=== PATIENT | male | born 1975 | race Caucasian/White ===

== ENCOUNTER 2016-11-28 17:08 | Emergency (ER) | payer OTHER ==
[~2016-11-28] VITALS: Ht 162.6 cm; Wt 86.3 kg
[~2016-11-28 17:08] MED LIST: ALBU6.7H INH; DOXY100T PO; PROT40TA PO; ZOFR4TAB PO
[2016-11-28 17:10] VITALS: BP 131/84; PULSE 81; RESP 16; TEMP 98.6; O2SAT 95
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
[2016-11-28] MEDS ORDERED: ZITH500T PO (18:48)
[2016-11-28 21:32] LABS: CHLAMYDIA PCR NOT DETECTED (NOT DETECT); NEISSERIA PCR NOT DETECTED (NOT DETECT)
== END 2016-11-28 18:58 | disposition home or self-care (01) ==
LOC: PHEFT 17:09
DX: Z20.2 Contact with and (suspected) exposure to infections with a predominantly sexual mode of transmission (principal); M54.9 Dorsalgia, unspecified; G89.29 Other chronic pain; Z72.0 Tobacco use; Z86.69 Personal history of other diseases of the nervous system and sense organs
CPT/HCPCS: 87491; 87591; 99283

== ENCOUNTER 2017-01-24 17:52 | Emergency (ER) | payer OTHER ==
[~2017-01-24 17:52] MED LIST changes: -ALBU6.7H INH; -DOXY100T PO; -PROT40TA PO; +ZITH500T PO; -ZOFR4TAB PO
[2017-01-24 17:59] VITALS: BP 148/77; PULSE 81; RESP 14; TEMP 98.6; O2SAT 97
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
[2017-01-24 18:30] LABS: CHLORIDE 104 MEQ/L (98-107); POTASSIUM 3.6 MEQ/L (3.5-5.1); SODIUM (NA) 140 MEQ/L (136-145)
[2017-01-24 18:34] LABS: ANION GAP 7 MEQ/L (5-15); BICARBONATE 29.2 MEQ/L (21.0-32.0)
[2017-01-24 18:35] LABS: BLOOD UREA NITROGEN 19 MG/DL (7-18)
[2017-01-24 18:37] LABS: ALT (GPT) 16 U/L (12-78); AST (GOT) 20 U/L (15-37); GLOMERULAR FILTRATION RATE 82 ML/MIN (>89)
[2017-01-24 18:38] LABS: AUTOMATED NEUTROPHIL # 10.2 TH/MM3 (1.8-7.7); BASOPHIL # 0.2 TH/MM3 (0-0.2); BASOPHIL % 1.7 % (0.0-2.0); EOSINOPHIL # 0.1 TH/MM3 (0-0.4); EOSINOPHIL % 0.5 % (0.0-4.0); HEMATOCRIT 39.2 % (39.0-51.0); LYMPH % 16.7 % (9.0-44.0); LYMPHOCYTE # 2.3 TH/MM3 (1.0-4.8); MEAN CORPUSCULAR HEMOGLOBIN 33.1 PG (27.0-34.0); MEAN CORPUSCULAR HGB CONC 33.5 % (32.0-36.0); MONO % 5.8 % (0.0-8.0); NEUT % 75.3 % (16.0-70.0); PLATELET COUNT 182 TH/MM3 (150-450); RED BLOOD COUNT 3.96 MIL/MM3 (4.50-5.90); RED CELL DISTRIBUTION WIDTH 13.8 % (11.6-17.2); WHITE BLOOD COUNT 13.6 TH/MM3 (4.0-11.0)
[2017-01-24 18:39] LABS: HEMO FLAGS DIFF FINAL; TOTAL BILIRUBIN ADULT 0.8 MG/DL (0.2-1.0)
[2017-01-24 18:40] LABS: ALKALINE PHOSPHATASE 33 U/L (45-117)
[2017-01-24 19:00] VITALS: BP 139/78; PULSE 68; RESP 16; O2SAT 99
[2017-01-24] MEDS ORDERED: IOHEXOL 350 MG/ML 10 ML VIAL (for RAD DIAG) IV ONE (19:00)
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
--- NOTE | 2017-01-24 19:08 | RADHPO ---
EXAM DATE/TIME: 01/24/2017 18:45 [facility] COMPARISON: CT ABDOMEN & PELVIS W CONTRAST, July 18, 2013, 2:17. INDICATIONS : Mid abdominal pain x 2 days. IV CONTRAST: 85 cc Omnipaque 350 (iohexol) IV ORAL CONTRAST: No oral contrast ingested. RADIATION DOSE: 10.57 CTDIvol (mGy) MEDICAL HISTORY : Seizures. SURGICAL HISTORY : None. ENCOUNTER: Initial ACUITY: 2 days PAIN SCALE: 8/10 LOCATION: Mid abdomen TECHNIQUE: Volumetric scanning of the abdomen and pelvis was performed. Using automated exposure control and ad justment of the mA and/or kV according to patient size, radiation dose was kept as low as reasonably achievable to obtain optimal diagnostic quality images. FINDINGS: LOWER LUNGS: Mild patchy air space opacities are seen of the visualized lung bases. LIVER: Homogeneous density without lesion. There is no dilation of the biliary tree. No calcified gallston es. SPLEEN: Normal size without lesion. PANCREAS: Within normal limits. KIDNEYS: There is mild hydronephrosis of the left kidney, mainly the upper pole. An 8mm mid zone stone is seen , presumably causing the hydronephrosis. There is a 3 mm stone of the left upper pole that does not a ppear to be obstructing. There is no hydroureter on either side or hydronephrosis on the right. ADRENAL GLANDS: Within normal limits. VASCULAR: There is no aortic aneurysm. BOWEL/MESENTERY: The stomach, small bowel, and colon demonstrate no acute abnormality. There is no free intraperitone al air or fluid. Normal appendix. ABDOMINAL WALL: Within normal limits. RETROPERITONEUM: There is no lymphadenopathy. BLADDER: 15 mm right posterolateral bladder diverticulum, unchanged. REPRODUCTIVE: Within normal limits. INGUINAL: There is no lymphadenopathy or hernia. MUSCULOSKELETAL: No acute bony abnormality demonstrated. CONCLUSION: 1. 8mm stone of the mid zone of the left kidney and appears to be causing mild obstruction of the upp er pole. There is a 3 mm nonobstructing left upper pole stone. 2. No obstruction or acute inflammatory changes are seen of the gastrointestinal tract. 3. Small bladder diverticulum, retrospectively unchanged. 4. Patchy consolidation of both lung bases. Cory Jacobs MD on January 24, 2017 at 19:03 Board Certified Radiologist. This report was verified electronically.
[2017-01-24 19:21] LABS: BLOOD, URINE NEG (NEG); GLUCOSE,URINE NEG (NEG); KETONE, URINE TRACE mg/dL (NEG); NITRITE,URINE NEG (NEG)
[2017-01-24 19:32] LABS: MUCUS URINE MOD /lpf (OCC); URINE COLOR YELLOW (YELLW/STRAW)
[2017-01-24 19:33] LABS: BACTERIA, URINE RARE /hpf; COMMENT (UR) CULTURE INDICATED; CULTURE IF INDICATED CULTURE INDICATED; RBC, URINE 0-3 /hpf (0-3); SQUAMOUS EPITHELIAL CELL URINE 0-5 /hpf (0-5); WBC, URINE 15-19 /hpf (0-5)
[2017-01-24 19:36] LABS: BARBITURATES, URINE NEG (NEG)
[2017-01-24 19:37] LABS: AMPHETAMINE, URINE NEG (NEG); COCAINE, URINE NEG (NEG)
[2017-01-24] MEDS ORDERED: cefTRIAXone INJ 1,000 MG in SODIUM CHLORIDE 0.9% INJ 100 ML IV ONE (19:45)
[2017-01-24] MEDS ORDERED: CEPH-460 PO (19:59)
[2017-01-24 20:07] VITALS: BP 135/66; PULSE 66; RESP 16; O2SAT 93
== END 2017-01-24 20:54 | disposition home or self-care (01) ==
LOC: PHED 17:52
DX: N39.0 Urinary tract infection, site not specified (principal); N20.0 Calculus of kidney; R56.9 Unspecified convulsions; F17.210 Nicotine dependence, cigarettes, uncomplicated; R51 Headache; Y04.2XXA Assault by strike against or bumped into by another person, initial encounter; V19.9XXA Pedal cyclist (driver) (passenger) injured in unspecified traffic accident, initial encounter; Y93.9 Activity, unspecified; Y92.410 Unspecified street and highway as the place of occurrence of the external cause; Y99.8 Other external cause status
CPT/HCPCS: 70450; 74177; 80053; 80307; 81001; 83690; 85025; 87086; 96365; 99284; J0696; Q9967

== ENCOUNTER 2017-02-11 23:07 | Emergency (ER) | payer OTHER ==
[~2017-02-11 23:07] MED LIST changes: +CEPH-460 PO; -ZITH500T PO
[2017-02-11 23:39] VITALS: BP 139/71; PULSE 80; RESP 18; TEMP 98.6; O2SAT 99
[2017-02-11] MEDS ORDERED: FOSPHENYTOIN INJ 1,000 MGPE in SODIUM CHLORIDE 0.9% INJ 50 ML IV ONE (23:45)
[2017-02-11 23:48] LABS: AUTOMATED NEUTROPHIL # 9.2 TH/MM3 (1.8-7.7); BASOPHIL # 0.1 TH/MM3 (0-0.2); BASOPHIL % 0.8 % (0.0-2.0); EOSINOPHIL # 0.2 TH/MM3 (0-0.4); EOSINOPHIL % 1.2 % (0.0-4.0); HEMATOCRIT 41.3 % (39.0-51.0); HEMO FLAGS DIFF FINAL; LYMPH % 25.5 % (9.0-44.0); LYMPHOCYTE # 3.6 TH/MM3 (1.0-4.8); MEAN CELL VOLUME 98.6 FL (80.0-100.0); MEAN CORPUSCULAR HEMOGLOBIN 33.2 PG (27.0-34.0); MEAN CORPUSCULAR HGB CONC 33.7 % (32.0-36.0); MONO % 7.4 % (0.0-8.0); NEUT % 65.1 % (16.0-70.0); PLATELET COUNT 200 TH/MM3 (150-450); RED BLOOD COUNT 4.19 MIL/MM3 (4.50-5.90); WHITE BLOOD COUNT 14.3 TH/MM3 (4.0-11.0)
--- NOTE | 2017-02-11 23:49 | PD ---
HPI Chief Complaint: Laceration/Skin Injury Time Seen by Provider: 23:17 Travel History International Travel<30 days: No Contact w/Intl Traveler<30days: No Traveled to known affect area: No History of Present Illness HPI 41yo M with PMH of seizure disorder presents to the ED with possible episode of seizure today. Pt states he let his dogs out in the yard and the next thing he remembered was face down on the cement. Pt with small laceration on right eyebrow and was a bit confused after. Pt now complains of right sided headache where the laceration is and right facial pain along with some neck pain. Pt denies any urinary incontinence. Denies any fever, chest pain, sob, n/v, abdominal pain, focal weakness or numbness. Pt states he was on depakote for 2 years and was taken off it for 3 years by his neurologist because he was having reaction to it. States he has not been on any seizure medications for 3 years. Tetanus up to date. PFSH Past Medical History Seizures: Yes Social History Alcohol Use: Yes (SOCIALLY, BEER (DENIES)) Tobacco Use: Yes (1 PACK EVERY 3 DAYS) Substance Use: No (DENIES) Allergies-Medications (Allergen,Severity, Reaction): Coded Allergies: Latex (Verified Allergy, Intermediate, RASH, 02/11/17) Penicillin (Verified Allergy, Intermediate, RASH, 02/11/17) Reported Meds & Prescriptions Reported Meds & Active Scripts Active Keflex (Cephalexin) 500 Mg Cap 500 Mg PO Q6H 10 Days Review of Systems Except as stated in HPI: all other systems reviewed are Neg Physical Exam Narrative GENERAL: 41yo M not in distress. SKIN: Focused skin assessment warm/dry. HEAD: +3cm laceration in right eyebrow. There is also a 0.5 cm superficial laceration underneath it. EYES: Pupils equal and round at 4mm bilaterally. EOMI. No scleral icterus. No injection or drainage. ENT: No nasal bleeding or discharge. Mucous membranes pink and moist. NECK: +C3-4 ttp. Pt placed in cervical spine collar. CARDIOVASCULAR: Regular rate and rhythm. No murmur appreciated. RESPIRATORY: No accessory muscle use. Clear to auscultation. Breath sounds equal bilaterally. GASTROINTESTINAL: Abdomen soft, non-tender, nondistended. MUSCULOSKELETAL: No obvious deformities. No clubbing. No cyanosis. No edema. NEUROLOGICAL: Awake and alert. No obvious cranial nerve deficits. Motor grossly within normal limits. Normal speech. AAOx3. GCS 15. PSYCHIATRIC: Appropriate mood and affect; insight and judgment normal. Data Data Last Documented VS Vital Signs Date Time Temp Pulse Resp B/P Pulse Ox O2 Delivery O2 Flow Rate FiO2 02/12/17 01:00 69 16 126/81 99 Room Air 02/11/17 23:39 98.6 Orders Apply Cervical Collar (02/11/17 23:33) Ct Brain W/O Iv Contrast(Rout) (02/11/17 ) Ct Cerv Spine W/O Contrast (02/11/17 ) Ct Facial Bones W/O Iv Cont (02/11/17 ) Complete Blood Count With Diff (02/11/17 23:35) Basic Metabolic Panel (Bmp) (02/11/17 23:35) Prothrombin Time / Inr (Pt) (02/11/17 23:35) Act Partial Throm Time (Ptt) (02/11/17 23:35) Fosphenytoin Inj (Cerebyx Inj) (02/11/17 23:45) Electrocardiogram (02/11/17 ) Magnesium (Mg) (02/11/17 23:40) Potassium Chloride (Kcl) (02/12/17 00:30) Lidocaine 1% Inj (50 Ml) (Xylocaine 1% I (02/12/17 00:45) Labs Laboratory Tests Test 02/11/17 23:40 White Blood Count 14.3 TH/MM3 Red Blood Count 4.19 MIL/MM3 Hemoglobin 13.9 GM/DL Hematocrit 41.3 % Mean Corpuscular Volume 98.6 FL Mean Corpuscular Hemoglobin 33.2 PG Mean Corpuscular Hemoglobin 33.7 % Concent Red Cell Distribution Width 14.0 % Platelet Count 200 TH/MM3 Mean Platelet Volume 9.1 FL Neutrophils (%) (Auto) 65.1 % Lymphocytes (%) (Auto) 25.5 % Monocytes (%) (Auto) 7.4 % Eosinophils (%) (Auto) 1.2 % Basophils (%) (Auto) 0.8 % Neutrophils # (Auto) 9.2 TH/MM3 Lymphocytes # (Auto) 3.6 TH/MM3 Monocytes # (Auto) 1.1 TH/MM3 Eosinophils # (Auto) 0.2 TH/MM3 Basophils # (Auto) 0.1 TH/MM3 CBC Comment DIFF FINAL Differential Comment Prothrombin Time 10.6 SEC Prothromb Time International 1.0 RATIO Ratio Activated Partial 27.7 SEC Thromboplast Time Sodium Level 141 MEQ/L Potassium Level 3.2 MEQ/L Chloride Level 104 MEQ/L Carbon Dioxide Level 27.8 MEQ/L Anion Gap 9 MEQ/L Blood Urea Nitrogen 11 MG/DL Creatinine 0.92 MG/DL Estimat Glomerular Filtration 90 ML/MIN Rate Random Glucose 149 MG/DL Calcium Level 9.2 MG/DL Magnesium Level 2.1 MG/DL [facility] Medical Decision Making Medical Screen Exam Complete: Yes Emergency Medical Condition: Yes Interpretation(s) EKG: NSR 71bpm. QTc 391ms. No ST segment elevation or depression. TWI III. Differential Diagnosis Seizure vs. electrolyte abnormality vs. fracture Narrative Course 41yo M with right eyebrow laceration s/p what sounded like a seizure. Pt given 1 gm of fosphenytoin. Labs reviewed, leukocytosis at 14.3, like reactive from seizure. K: 3.2, replaced with 40mEq KCl. CT cervical spine unremarkable. Cervical spine collar clear by NEXUS criteria. Pain is more left sided. CT brain negative. CT maxillofacial negative. Pt given acetaminophen for pain. Tetanus up to date. Laceration repaired. Return precautions given. Pt states his neurologist does not take his insurance anymore, will refer to classification inspector neurologist. Diagnosis Primary Impression: Head trauma Qualified Code: S09.90XA - Head trauma, initial encounter Referrals: Robby Jean-Baptiste MD 1 day seizure, need new neurologist Patient Instructions: General Instructions Departure Forms: Tests/Procedures Additional Instructions: Please follow up with neurology in 1-2 days. Return to the ED if symptoms worsen. Med/Other Pt SpecificInfo: Prescription(s) given Scripts Acetaminophen (Acetaminophen Extra Strength)500 Mg [id number] Mg PO Q6H PRN (PAIN SCALE 1 TO 4) #20 TAB Ref 0 Prov:BrownLinda DO 02/12/17 Disposition: 01 DISCHARGE HOME Condition: Stable Linda Brown DO February 11, 2017 23:49
[2017-02-11 23:54] LABS: POTASSIUM 3.2 MEQ/L (3.5-5.1)
[2017-02-11 23:58] LABS: BICARBONATE 27.8 MEQ/L (21.0-32.0); MAGNESIUM 2.1 MG/DL (1.5-2.5)
[2017-02-12] LABS: APTT (PATIENT) 27.7 SEC (24.3-30.1); PROTHROMBIN TIME - PATIENT 10.6 SEC (9.8-11.6)
[2017-02-12] MEDS ORDERED: POTASSIUM CHLORIDE 20 MEQ CONTROLLED RELEASE TAB PO ONE (00:30)
[2017-02-12] MEDS ORDERED: LIDOCAINE HCL 1% 50 ML VIAL INFIL ONE (00:45)
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
[2017-02-12 01:00] VITALS: BP 126/81; PULSE 69; RESP 16; O2SAT 99
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
[2017-02-12] MEDS ORDERED: ACET500T36 PO (02:00)
[2017-02-12] MEDS ORDERED: ACETAMINOPHEN 325 MG TAB PO ONE (02:15)
--- NOTE | 2017-02-12 19:33 | EKG ---
Date Performed: 02/11/2017 Time Performed: 23:49:14 PTAGE: 41 years EKG: Sinus rhythm . rSr'(V1) - probable normal variant Normal ECG PREVIOUS TRACING : 10/11/2011 16.18 Compared to prior tracing no significant change DOCTOR: Paulo Brooks Interpretating Date/Time 02/12/2017 19:31:36
== END 2017-02-12 02:25 | disposition home or self-care (01) ==
LOC: PHED 23:07
DX: S09.90XA Unspecified injury of head, initial encounter (principal); S01.111A Laceration without foreign body of right eyelid and periocular area, initial encounter; G40.909 Epilepsy, unspecified, not intractable, without status epilepticus; D72.829 Elevated white blood cell count, unspecified; F17.200 Nicotine dependence, unspecified, uncomplicated; W18.30XA Fall on same level, unspecified, initial encounter; Z79.899 Other long term (current) drug therapy
CPT/HCPCS: 70450; 70486; 72125; 80048; 83735; 85025; 85610; 85730; 93005; 99285; Q2009

== ENCOUNTER 2017-02-14 20:54 | Emergency (ER) | payer OTHER ==
[~2017-02-14] VITALS: Ht 162.6 cm; Wt 84.7 kg
[~2017-02-14 20:54] MED LIST changes: +ACET500T36 PO; -CEPH-460 PO
[2017-02-14 20:59] VITALS: BP 119/83; PULSE 78; RESP 16; TEMP 98.8; O2SAT 96
[2017-02-14] MEDS ORDERED: DILA100C PO (21:28)
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
--- NOTE | 2017-02-14 22:38 | PD ---
Physical Exam Time Seen by Provider: 22:36 Narrative Has asked by Dr. Harrison to repair laceration of this patient. Please see his note for further details. Data Data Last Documented VS Vital Signs Date Time Temp Pulse Resp B/P Pulse Ox O2 Delivery O2 Flow Rate FiO2 02/14/17 22:11 20 02/14/17 20:59 98.8 78 119/83 96 Orders Phenytoin (Dilantin) (02/14/17 21:30) Alcohol (Ethanol) (02/14/17 21:30) Labs Laboratory Tests Test 02/14/17 21:50 Phenytoin (Dilantin) Level 5.8 MCG/ML Ethyl Alcohol Level LESS THAN 3 MG/DL MDM Medical Record Reviewed: Yes Supervised Visit with YUE: Yes Procedures Procedure Narrative LACERATION LOCATION: Left eyebrow LENGTH: 1 cm REPAIR: The area of the laceration was prepped with soap and water. The wound was copiously irrigated and explored without evidence of foreign body, tendon injury or neurovascular injury. The wound was closed using Dermabond. This was a single layer repair. A sterile dressing was applied. The patient was advised to keep the dressing clean and dry. Susie Smith February 14, 2017 22:37
[2017-02-14] MEDS ORDERED: PHENYTOIN SODIUM 100 MG CAP PO ONE (22:45)
== END 2017-02-14 23:00 | disposition home or self-care (01) ==
LOC: PHEFT 20:54
DX: S01.81XA Laceration without foreign body of other part of head, initial encounter (principal); G40.909 Epilepsy, unspecified, not intractable, without status epilepticus; V17.4XXA Pedal cycle driver injured in collision with fixed or stationary object in traffic accident, initial encounter
CPT/HCPCS: 12011; 80185; 80307

== ENCOUNTER 2017-02-16 10:25 | Emergency (ER) | payer OTHER ==
[~2017-02-16] VITALS: Ht 162.6 cm; Wt 85.0 kg
[~2017-02-16 10:25] MED LIST changes: -ACET500T36 PO; +DILA100C PO
[2017-02-16 10:28] VITALS: BP 108/78; PULSE 76; RESP 16; TEMP 98.3; O2SAT 98
--- NOTE | 2017-02-16 11:16 | PD ---
HPI Chief Complaint: Wound/Suture/Staple Re-Check Time Seen by Provider: 11:12 Travel History International Travel<30 days: No Contact w/Intl Traveler<30days: No Traveled to known affect area: No History of Present Illness HPI 31-year-old male presents to the emergency room for suture removal. Patient had 5 sutures placed over his right elbow 5 days ago. Patient denies any pain or drainage. States he has been keeping it clean and dry. PFSH Past Medical History Diminished Hearing: No Seizures: Yes Social History Alcohol Use: Yes (SOCIALLY, BEER (DENIES)) Tobacco Use: Yes (1 PACK EVERY 3 DAYS) Substance Use: No (DENIES) Allergies-Medications (Allergen,Severity, Reaction): Coded Allergies: Latex (Verified Allergy, Intermediate, RASH, 02/16/17) Penicillin (Verified Allergy, Intermediate, RASH, 02/16/17) Reported Meds & Prescriptions Reported Meds & Active Scripts Active Reported Dilantin (Phenytoin Extended) 100 Mg Cap 100 Mg PO TID Review of Systems Except as stated in HPI: all other systems reviewed are Neg Physical Exam Narrative GENERAL: Well-nourished, well-developed male in no acute distress. Afebrile. Ambulatory. SKIN: Focused skin assessment warm/dry. Well-healed scab over the right eyebrow with 5 intact sutures. No evidence of infection. HEAD: Normocephalic. EYES: No scleral icterus. No injection or drainage. NECK: Supple, trachea midline. No JVD or lymphadenopathy. CARDIOVASCULAR: Regular rate and rhythm without murmurs, gallops, or rubs. RESPIRATORY: Breath sounds equal bilaterally. No accessory muscle use. PSYCHIATRIC: No delusional thought processes. No hallucinations. Data Data Last Documented VS Vital Signs Date Time Temp Pulse Resp B/P Pulse Ox O2 Delivery O2 Flow Rate FiO2 02/16/17 10:28 98.3 76 16 108/78 98 MDM Medical Decision Making Medical Screen Exam Complete: Yes Emergency Medical Condition: Yes Medical Record Reviewed: Yes Differential Diagnosis Suture removal versus wound infection versus laceration Narrative Course 41-year-old male presents to the emergency room for evaluation of stitches removal. Patient advised to place over his right eyebrow 5 days ago. On exam there are 5 intact sutures with a well-healed wound without evidence of infection. Area was cleansed and then stitches were removed without difficulty. Patient was told to continue wound care and follow-up the primary care physician as needed. He understands and agrees to plan. Diagnosis Primary Impression: Visit for suture removal Referrals: Primary Care Physician Patient Instructions: General Instructions, Stitches Removal (ED) Additional Instructions: Keep wounds clean and dry. Follow up with a primary care physician as needed. Return for urgent or emergent conditions. Disposition: 01 DISCHARGE HOME Condition: Stable Susie Smith February 16, 2017 11:16
== END 2017-02-16 11:21 | disposition home or self-care (01) ==
LOC: PHEFT 10:25
DX: Z48.02 Encounter for removal of sutures (principal)
CPT/HCPCS: 99281